=== PATIENT | male | born 1960 | race Two or more races ===

== ENCOUNTER 2017-09-25 13:57 | Inpatient (IN) | payer OTHER, MEDICAID ==
[~2017-09-25] VITALS: Ht 170.2 cm; Wt 77.6 kg
[2017-09-25] MEDS ORDERED: ASPIRIN 325 MG TABLET PO STA (14:03)
[2017-09-25] MEDS ORDERED: FENTANYL PF 100 MCG/2ML ONE (14:04)
[2017-09-25] MEDS ORDERED: MIDAZOLAM 1 MG/ML, 5ML ONE (14:04)
[2017-09-25] MEDS ORDERED: VERAPAMIL 2.5 MG/ML, 2ML ONE (14:05)
[2017-09-25] MEDS ORDERED: BIVALIRUDIN 250 MG ONE (14:05)
[2017-09-25] MEDS ORDERED: HEPARIN 1,000 UNITS/ML, 10ML ONE (14:05)
[2017-09-25] MEDS ORDERED: TICAGRELOR 90 MG TABLET ONE (14:05)
[2017-09-25] MEDS ORDERED: LIDOCAINE 2%, 2ML ONE (14:05)
[2017-09-25] MEDS ORDERED: LIDOCAINE/PF 1%, 30ML ONE (14:07)
[2017-09-25 14:19] LABS: BASOPHILS # (AUTO) 0.05 x10^3/uL (0-0.1); BASOPHILS % (AUTO) 0 % (0-1); EOSINOPHILS # (AUTO) 0.26 x10^3/uL (0-0.4); EOSINOPHILS % (AUTO) 2 % (1-7); LYMPHOCYTES # (AUTO) 1.59 x10^3/uL (1-3.4); LYMPHOCYTES % (AUTO) 15 % (22-44); MD NO; MEAN CORPUSCULAR HEMOGLOBIN 29.9 pg (27.5-34.5); MEAN CORPUSCULAR HGB CONC 33.9 g/dL (33.2-36.2); MEAN PLATELET VOLUME 8.3 fL (7.4-10.4); MONOCYTES # (AUTO) 0.59 x10^3/uL (0.2-0.8); MONOCYTES % (AUTO) 6 % (2-9); NEUTROPHILS # (AUTO) 8.33 x10^3/uL (1.8-6.8); NEUTROPHILS % (AUTO) 77 % (42-75); PLATELET COUNT 277 x10^3/uL (130-400); RED BLOOD COUNT 5.12 x10^6/uL (4.38-5.82); RED CELL DISTRIBUTION WIDTH 13.7 % (9.4-14.8)
[2017-09-25 14:22] LABS: INTERNATIONAL NORMALIZED RATIO 0.95 (0.93-1.1); PROTHROMBIN TIME 9.9 Seconds (9.6-11.5)
[2017-09-25] MEDS ORDERED: METF500T4 PO (14:24)
[2017-09-25] MEDS ORDERED: ATOR20TA9 PO (14:24)
[2017-09-25] MEDS ORDERED: INSU100V13 SQ (14:24)
[2017-09-25] MEDS ORDERED: LISI-167 PO (14:24)
[2017-09-25] MEDS ORDERED: ONDANSETRON 2MG/ML, 2ML IVPush PRN (15:00)
[2017-09-25] MEDS ORDERED: MORPHINE SULFATE 4 MG/ML, 1ML IVPush PRN (15:00)
[2017-09-25] MEDS ORDERED: NITROGLYCERIN 0.4 MG/SPRAY SL PRN (15:00)
[2017-09-25] MEDS ORDERED: ACETAMINOPHEN 325 MG TABLET PO PRN ×2 (15:00→15:30)
[2017-09-25] MEDS ORDERED: NITROGLYCERIN 0.4 MG BOTTLE (25 TABS) SL PRN (15:00)
[2017-09-25] MEDS ORDERED: BIVALIRUDIN 250 MG in DEXTROSE 5% 50 ML IV SCH (15:02)
[2017-09-25 15:18] LABS: CHOLESTEROL, TOTAL 168 mg/dL (140-239); TRIGLYCERIDES 314 mg/dL (50-200); VLDL CHOLESTEROL 63 mg/dL (0-25)
[2017-09-25 15:21] LABS: CHOL/HDL RATIO 3.6; HDL CHOL % 28 % (26-37); HDL CHOLESTEROL (DIRECT) 47 mg/dL (40-60); LDL CHOLESTEROL,CALCULATED 58 mg/dL (54-169); LDL/HDL RATIO 1.2 (0.5-3.0)
[2017-09-25] MEDS: SODIUM CHLORIDE 0.9% 1,000 ML IV SCH (15:47)
[2017-09-25 16:16] LABS: HEMOGLOBIN A1C 7.8 % (4.2-6.3)
[2017-09-25] MEDS ORDERED: ATROPINE SYRINGE 0.1 MG/ML, 10ML ONE (16:35)
[2017-09-25] MEDS ORDERED: INSULIN LISPRO 100 UNITS/ML, PEN ONE (18:29)
[2017-09-25] MEDS: METOPROLOL TARTRATE 25 MG TABLET PO SCH (21:00)
[2017-09-25] MEDS: TICAGRELOR 90 MG TABLET PO SCH (21:01)
[2017-09-25] MEDS: ATORVASTATIN 80 MG TABLET PO SCH (21:01)
[2017-09-25] MEDS: INSULIN LISPRO 100 UNITS/ML, PEN SQ-INSULIN SCH (21:07)
[2017-09-26] MEDS: SODIUM CHLORIDE 0.9% 1,000 ML IV SCH ×2 (01:00→08:00)
[2017-09-26 02:52] LABS: BASOPHILS # (AUTO) 0.02 x10^3/uL (0-0.1); BASOPHILS % (AUTO) 0 % (0-1); EOSINOPHILS % (AUTO) 2 % (1-7); LYMPHOCYTES # (AUTO) 1.14 x10^3/uL (1-3.4); LYMPHOCYTES % (AUTO) 12 % (22-44); MD NO; MEAN CORPUSCULAR HEMOGLOBIN 29.7 pg (27.5-34.5); MEAN CORPUSCULAR VOLUME 87.3 fL (81-97); MEAN PLATELET VOLUME 7.9 fL (7.4-10.4); MONOCYTES # (AUTO) 0.74 x10^3/uL (0.2-0.8); MONOCYTES % (AUTO) 8 % (2-9); NEUTROPHILS # (AUTO) 7.57 x10^3/uL (1.8-6.8); NEUTROPHILS % (AUTO) 78 % (42-75); PLATELET COUNT 218 x10^3/uL (130-400); RED BLOOD COUNT 4.19 x10^6/uL (4.38-5.82); RED CELL DISTRIBUTION WIDTH 13.8 % (9.4-14.8)
[2017-09-26 03:00] LABS: ALANINE AMINOTRANSFERASE 35 U/L (12-78); ALBUMIN 3.1 g/dL (3.4-5.0); ANION GAP 8 mmol/L (5-15); CALCIUM 8.1 mg/dL (8.5-10.1); CHLORIDE 107 mmol/L (98-107); CREATININE 0.86 mg/dL (0.7-1.3)
[2017-09-26 03:02] LABS: ALKALINE PHOSPHATASE 69 U/L (45-117); BILIRUBIN,TOTAL 0.7 mg/dL (0.2-1.0); TOTAL PROTEIN 6.6 g/dL (6.4-8.2)
[2017-09-26 04:00] VITALS: BP 92/51
[2017-09-26] MEDS: ASPIRIN 81 MG TABLET EC PO SCH (05:52)
[2017-09-26] MEDS: INSULIN LISPRO 100 UNITS/ML, PEN SQ-INSULIN SCH ×4 (08:21→20:23)
[2017-09-26] MEDS: TICAGRELOR 90 MG TABLET PO SCH ×2 (08:21→20:19)
[2017-09-26] MEDS: METOPROLOL TARTRATE 25 MG TABLET PO SCH ×2 (09:00→20:19)
[2017-09-26] MEDS: LISINOPRIL 5 MG TABLET PO SCH (09:00)
[2017-09-26 14:15] VITALS: BP 111/67
[2017-09-26] MEDS: metFORMIN 500 MG TABLET PO SCH (16:38)
[2017-09-26] MEDS: ATORVASTATIN 80 MG TABLET PO SCH (20:19)
[2017-09-26 20:23] VITALS: BP 103/50
[2017-09-27 01:35] VITALS: BP 102/64
[2017-09-27] MEDS: ASPIRIN 81 MG TABLET EC PO SCH (05:14)
[2017-09-27 05:24] LABS: BASOPHILS # (AUTO) 0.04 x10^3/uL (0-0.1); BASOPHILS % (AUTO) 1 % (0-1); EOSINOPHILS # (AUTO) 0.32 x10^3/uL (0-0.4); EOSINOPHILS % (AUTO) 4 % (1-7); LYMPHOCYTES # (AUTO) 1.74 x10^3/uL (1-3.4); LYMPHOCYTES % (AUTO) 20 % (22-44); MD NO; MEAN CORPUSCULAR HEMOGLOBIN 30.3 pg (27.5-34.5); MEAN CORPUSCULAR HGB CONC 34.6 g/dL (33.2-36.2); MEAN CORPUSCULAR VOLUME 87.8 fL (81-97); MEAN PLATELET VOLUME 8.5 fL (7.4-10.4); MONOCYTES # (AUTO) 0.82 x10^3/uL (0.2-0.8); MONOCYTES % (AUTO) 10 % (2-9); NEUTROPHILS # (AUTO) 5.62 x10^3/uL (1.8-6.8); NEUTROPHILS % (AUTO) 66 % (42-75); PLATELET COUNT 206 x10^3/uL (130-400); RED BLOOD COUNT 4.05 x10^6/uL (4.38-5.82); RED CELL DISTRIBUTION WIDTH 13.8 % (9.4-14.8)
[2017-09-27 05:30] LABS: ANION GAP 6 mmol/L (5-15); CALCIUM 8.4 mg/dL (8.5-10.1); CHLORIDE 109 mmol/L (98-107)
[2017-09-27 07:12] VITALS: BP 105/67
[2017-09-27] MEDS: INSULIN LISPRO 100 UNITS/ML, PEN SQ-INSULIN SCH ×2 (07:39→11:33)
[2017-09-27] MEDS: metFORMIN 500 MG TABLET PO SCH (08:46)
[2017-09-27] MEDS: LISINOPRIL 5 MG TABLET PO SCH (08:55)
[2017-09-27] MEDS: TICAGRELOR 90 MG TABLET PO SCH (08:55)
[2017-09-27] MEDS: METOPROLOL TARTRATE 25 MG TABLET PO SCH (08:56)
[2017-09-27] MEDS ORDERED: METO25TA91 PO (11:21)
[2017-09-27] MEDS ORDERED: TICA90TA PO (11:21)
[2017-09-27] MEDS ORDERED: LISI5TAB7 PO (11:21)
[2017-09-27] MEDS ORDERED: ATOR-2 PO (11:21)
[2017-09-27] MEDS ORDERED: ASPI-621 PO (11:21)
[2017-09-27] MEDS ORDERED: NITR0.4T SL (11:21)
[2017-09-27] MEDS ORDERED: METF500T PO (11:21)
[2017-09-27 13:37] VITALS: BP 111/70
== END 2017-09-27 16:03 | disposition home or self-care (01) | DRG 247 ==
LOC: ED 14:02 → EDIP 14:03 → ED 14:15 → CCU 15:08 → 5SO 09-26 10:41
PROVIDERS: ADMIT Internal Medicine Cardiovascular Disease; ATTEND Internal Medicine Cardiovascular Disease
PROC: 027034Z Dilation of Coronary Artery, One Artery with Drug-eluting Intraluminal Device, Percutaneous Approach (ICD-10-PCS; principal; 2017-09-25)
PROC: 4A023N7 Measurement of Cardiac Sampling and Pressure, Left Heart, Percutaneous Approach (ICD-10-PCS; 2017-09-25)
PROC: B2111ZZ Fluoroscopy of Multiple Coronary Arteries using Low Osmolar Contrast (ICD-10-PCS; 2017-09-25)
PROC: B2151ZZ Fluoroscopy of Left Heart using Low Osmolar Contrast (ICD-10-PCS; 2017-09-25)
DX: I21.19 ST elevation (STEMI) myocardial infarction involving other coronary artery of inferior wall (principal); E88.09 Other disorders of plasma-protein metabolism, not elsewhere classified; E11.9 Type 2 diabetes mellitus without complications; I10 Essential (primary) hypertension; I25.10 Atherosclerotic heart disease of native coronary artery without angina pectoris; E78.5 Hyperlipidemia, unspecified; I25.84 Coronary atherosclerosis due to calcified coronary lesion; Z79.82 Long term (current) use of aspirin; Z86.73 Personal history of transient ischemic attack (TIA), and cerebral infarction without residual deficits; Z87.891 Personal history of nicotine dependence
CPT/HCPCS: 36415; 71045; 80047; 80048; 80053; 80061; 82962; 83036; 84484; 85025; 85610; 85730; 87081; 93005; 93306; 93458; 99156; 99157; 99285; C1760; C1769; C1894; C9600; J0461; J0583; J1644; J2250; J3010; J3490; C1725; C1874; C1887; J7030; Q9967

== ENCOUNTER → 2017-12-23 | Outpatient (CLI) | payer OTHER, MEDICAID ==
[~2017-12-23] MED LIST: ASPI-621 PO; ATOR-2 PO; ATOR20TA9 PO; INSU100V13 SQ; LISI-167 PO; LISI5TAB7 PO; METF500T PO; METF500T5 PO; METO25TA91 PO; NITR0.4T SL; TICA90TA PO
== END | disposition home or self-care (01) ==
LOC: CFH 08:29
PROVIDERS: ATTEND Physician Assistant Medical
DX: I25.10 Atherosclerotic heart disease of native coronary artery without angina pectoris (principal); I21.19 ST elevation (STEMI) myocardial infarction involving other coronary artery of inferior wall; Z87.891 Personal history of nicotine dependence
CPT/HCPCS: 78452; 93017; A9502